=== PATIENT | female | born 1985 | race Caucasian/White ===

== ENCOUNTER 2018-05-17 18:07 | Emergency (ER) | payer MEDICAID, SELFPAY ==
[2018-05-17 18:08] VITALS: BP 128/77; PULSE 119; RESP 16; TEMP 36.4; O2SAT 98; BMI 31.1
--- NOTE | 2018-05-17 18:40 | ED.VISSUMM ---
- ER Visit Summary Date of Service: 05/17/18 Chief Complaint: Right knee cellulitis History of Present Illness: The patient is a 32 F presenting with redness to her right knee. This started yesterday. It started with a small area of redness. She went to urgent care yesterday and was started on Bactrim. She states a line was drawn around the redness. Today the redness spread beyond the line. She has had fevers at home. She denies chest pain or shortness of breath. Denies other complaints. Physical Examination: Vitals are stable. Patient is afebrile. Alert no acute distress. HEENT exam is unremarkable. Neck is supple. Lungs are clear and equal bilaterally. Heart is regular rate and rhythm. Abdomen is soft nontender nondistended. Extremities right lateral knee erythema, no fluctuance. Able to range knee without difficulty Skin is warm and dry. No focal neurologic deficit. Remainder of exam is unremarkable. Emergency Department Course and Treatment: CBC is normal. ESR is normal. Chemistries unremarkable, hCG negative. CRP 30.7. Right knee x-ray shows no acute bony process, focal lateral subcutaneous edema. On repeat exam, the erythema has not spread. She has full range of motion without difficulty. She is given a dose of Ancef IV. She declines admission. She is given a prescription for Keflex and advised to continue Bactrim. She will watch this closely and return to the ED if she has any worsening complaints. Line is drawn around the erythema. She will follow-up with her primary care physician. Disposition: Discharged home Impression: Right lower extremity cellulitis This note was generated with [employer] dictation software. It may contain incorrect words, spelling, and punctuation that were not noted in review of the chart prior to signing ED Disposition - Plan for ED Patient: Chief Complaint: Abscess Instructions: ED Infec Skin Cellulitis Prescriptions: Cephalexin [Keflex] 500 mg PO Q6 #40 capsule Referrals: Evert Love MD [Primary Care Provider] -
[2018-05-17 18:51] LABS: Absolute Lymphocyte Count 1.73 X10^3/ul (0.83-4.51); Absolute Neutrophil Count 4.7 X10^3/uL (2.0-7.7); Basophil# 0.02 X10^3/uL; Basophil% 0.3 % (0-1); Eosinophil# 0.11 X10^3/uL; Eosinophils% 1.5 % (0-5); Hematocrit 42.7 % (37-47); Hemoglobin 14.4 g/dl (12.0-15.0); Lymphocyte # 1.73 X10^3/ul (4.0); Lymphocyte % 24.2 % (19-41); Mean Corp Hgb Conc 33.7 g/gl (32-36); Mean Corpuscular Hgb 29.4 pg (27.0-32.0); Mean Corpuscular Volume 87.3 fL (81-99); Mean Platelet Vol. 9.4 fl (6.2-12.0); Monocyte# 0.55 X10^3/uL; Monocyte% 7.7 % (0-10); Neutrophil # 4.72 X10^3/uL (2.7-7.7); Neutrophil % 66.2 % (47-70); Platelet Count 255 K/mm3 (150-450); RBC Distribution Width SD 40.8 fl (35.1-43.9); Red Blood Count 4.89 M/mm3 (4.2-5.4); White Blood Count 7.1 K/mm3 (4.4-11.0)
[2018-05-17 18:53] LABS: POSITIVE COUNT NO; POSITIVE DIFFERENTIAL NO; POSITIVE MORPHOLOGY NO
[2018-05-17 19:11] LABS: Erythrocyte Sedimentation Rate 16 mm/hr (0-20)
[2018-05-17 19:20] LABS: Anion Gap 10 (5-15); BUN 10 mg/dL (7-18); BUN/Creat Ratio 12.9 RATIO (10-20); Calcium,Total 8.9 mg/dL (8.5-10.1); Chloride 106 mmol/L (98-107); Creatinine, Serum 0.78 mg/dL (0.55-1.02); EST Glomerular Filtration Rate 92 mL/min (>60); Est Glom Filt Rate - Afr Amer 111 mL/min (>60); Estimated Creatinine Clearance 83.41 ml/min; Glucose 89 mg/dL (74-106); Potassium 3.6 mmol/L (3.5-5.1); Sodium Level 140 mmol/L (136-145)
[2018-05-17 19:30] LABS: Pregnancy, Serum, hCG Quali. NEGATIVE Negative (0-9 Nonpreg)
--- NOTE | 2018-05-17 20:51 | ED.DEP ---
ED Disposition - Plan for ED Patient: Chief Complaint: Abscess Instructions: ED Infec Skin Cellulitis Prescriptions: Cephalexin [Keflex] 500 mg PO Q6 #40 capsule Referrals: Evert Love MD [Primary Care Provider] -
[2018-05-17] MEDS: Cefazolin 1 GM/50 ML BAG IV (21:06)
[2018-05-17] MEDS: Ketorolac 30 MG/ML Syringe IV (21:06)
[2018-05-17 21:07] VITALS: BP 103/73; PULSE 97; RESP 18; O2SAT 97
[2018-05-17 22:15] VITALS: BP 101/70; PULSE 98; RESP 18; O2SAT 96
== END 2018-05-17 22:17 | disposition home or self-care (01) ==
LOC: ED 19:01
PROVIDERS: Emergency Provider Emergency Medicine; Family Provider Family Medicine; PCP Family Medicine
DX: L03.115 Cellulitis of right lower limb (principal); Z86.711 Personal history of pulmonary embolism
CPT/HCPCS: 73560; 80048; 84703; 85025; 85652; 86140; 96365; 96375; 99283; J7050; A4216

== ENCOUNTER 2018-05-25 22:11 | Emergency (ER) | payer MEDICAID, SELFPAY ==
[2018-05-25 22:11] VITALS: BP 121/70; PULSE 90; RESP 18; TEMP 36.6; O2SAT 97; BMI 35.2
--- NOTE | 2018-05-25 23:35 | ED.VISSUMM ---
- ER Visit Summary Date of Service: 05/25/18 Chief Complaint: [] History of Present Illness: The patient is a 32 F [left thigh lesion presents the emergency department complaint of a lesion on her left distal thigh that she noticed this evening. Patient states initially started with some discomfort to the distal thigh and some tingling followed by a small discoloration which has continued to enlarge this evening. Patient denies any trauma. Patient is concerned because she has had history of PEs. She is not currently on blood thinners. She denies any chest pain or shortness of breath.] Physical Examination: [HEENT-PERRLA, EOMI. Cranial nerves II through XII grossly intact. TMs clear. Mucous membranes moist. No adenopathy. Cardiovascular-regular rate and rhythm without murmur or ectopy Lungs-clear to auscultation, chest wall stable without crepitus or subcu emphysema Abdomen-normoactive bowel sounds, soft, nontender, no rebound or rigidity, no peritoneal signs. Extremities-intact ?4, normal range of motion, normal pulses. Left thigh-just proximal to the left knee on the anterior thigh there is a small area of ecchymosis and bruising which is consistent with a small hematoma. Area is tender to palpation. No significant edema of the extremity. No tenderness over the calf. Negative Homans sign. Test Results: [CBC with differential obtained was normal. Venous duplex of the left lower extremity was negative for DVT.] Emergency Department Course and Treatment: Sanjeev wrap was given for compression. I suspect patient likely has a spontaneous hematoma from a small vessel rupture. [] Treatment Plan: Sanjeev wrap [] Disposition: [Discharged home in stable condition] Impression: [Hematoma left thigh-spontaneous] This note was generated with [employer] dictation software. It may contain incorrect words, spelling, and punctuation that were not noted in review of the chart prior to signing ED Disposition - Plan for ED Patient: Chief Complaint: Wound Referrals: Evert Love MD [Primary Care Provider] -
--- NOTE | 2018-05-25 23:37 | ED.DEP ---
ED Disposition - Plan for ED Patient: Chief Complaint: Wound Instructions: ED Hematoma Referrals: Evert Love MD [Primary Care Provider] - 3-5 Days
[2018-05-25 23:41] LABS: Absolute Lymphocyte Count 2.64 X10^3/ul (0.83-4.51); Absolute Neutrophil Count 2.6 X10^3/uL (2.0-7.7); Basophil# 0.02 X10^3/uL; Basophil% 0.3 % (0-1); Eosinophil# 0.17 X10^3/uL; Eosinophils% 2.9 % (0-5); Hematocrit 43.8 % (37-47); Hemoglobin 14.5 g/dl (12.0-15.0); Lymphocyte # 2.64 X10^3/ul (4.0); Lymphocyte % 45.4 % (19-41); Mean Corp Hgb Conc 33.1 g/gl (32-36); Mean Corpuscular Hgb 29.2 pg (27.0-32.0); Mean Corpuscular Volume 88.3 fL (81-99); Mean Platelet Vol. 9.6 fl (6.2-12.0); Monocyte# 0.36 X10^3/uL; Monocyte% 6.2 % (0-10); Neutrophil # 2.62 X10^3/uL (2.7-7.7); Platelet Count 302 K/mm3 (150-450); RBC Distribution Width CV 12.9 % (11.6-14.6); RBC Distribution Width SD 41.3 fl (35.1-43.9); Red Blood Count 4.96 M/mm3 (4.2-5.4); White Blood Count 5.8 K/mm3 (4.4-11.0)
[2018-05-25 23:43] LABS: POSITIVE COUNT NO; POSITIVE DIFFERENTIAL NO; POSITIVE MORPHOLOGY NO
[2018-05-25 23:55] VITALS: RESP 18; O2SAT 97
== END 2018-05-25 23:57 | disposition home or self-care (01) ==
PROVIDERS: Emergency Provider Emergency Medicine; Family Provider Family Medicine; PCP Family Medicine
DX: S70.12XA Contusion of left thigh, initial encounter (principal); X58.XXXA Exposure to other specified factors, initial encounter; Y93.9 Activity, unspecified; Y92.9 Unspecified place or not applicable; Y99.9 Unspecified external cause status; Z86.711 Personal history of pulmonary embolism
CPT/HCPCS: 85025; 93971; 99283; A4216

== ENCOUNTER 2019-05-21 17:07 | Emergency (ER) | payer MEDICAID, SELFPAY ==
[2019-05-21 17:10] VITALS: BP 126/73; PULSE 85; RESP 18; TEMP 36.3; O2SAT 96; BMI 38.3
--- NOTE | 2019-05-21 17:18 | ED.VIS.GEN ---
History of Present Illness Chief Complaint: Abd Pain Informant: Patient Onset: Yesterday Context: Sudden Onset Timing: Continuous Quality: Pain Location: Supraumbilical Current Severity: Moderate Maximum Severity: Severe Worsened by: Movement Relieved by: Nothing Associated Symptoms: Nothing other than pain Narrative: Patient is a 33-year-old woman who presents with supraumbilical pain secondary to a reducible hernia. She was seen at [facility]. The [facility] care physician was unable to reduce the hernia. States she has had pain since yesterday. She denies fever, chills or night sweats. She denies nausea, vomiting or diarrhea. She denies constipation. She has no other complaints. Prior similar symptoms: Yes Recent Illness/Hospitalization: No - Past Medical History (1) No significant past medical history Status: Acute Past Medical History - Allergies and Home Meds Allergies/Adverse Reactions: Allergies No Known Allergies Allergy (Verified 05/21/19 17:12) Primary Care Physician: Evert Love MD [Primary Care Provider] - Past Medical History: - - Patient vocal hernia Lives: With Family Smoking Status: Never smoker Alcohol: Rare Drugs: None Review of Systems General: Denies: Chills, Fever, Malaise Eyes: Denies: Visual changes - bilaterally, Blurred Vision - bilaterally ENT: Denies: Bilateral ear pain, Rhinorrhea, Sore throat Cardiovascular: Denies: Chest pain, Palpitations, Heart racing Respiratory: Denies: Dyspnea, Cough, Dyspnea on exertion Gastrointestinal: Reports: Abdominal pain. Denies: Nausea, Vomiting, Diarrhea, Melena, Hematochezia Genitourinary: Denies: Dysuria, Hematuria, Frequency Hematologic: Denies: Easy bruising, Easy bleeding Physical Exam Vital Signs/Narrative: Vital Signs Temp Pulse Resp BP Pulse Ox 05/21/19 17:10 97.3 F L 85 18 126/73 H 96 Inital Vital Signs reviewed: Yes General: Well nourished, Well developed, Acute Distress Head: Normocephalic, Atraumatic Eyes: Perrl, EOMI. Negative for: Pale conjunctiva, Scleral icterus ENT: Negative for: No rhinorrhea, TM's clear Cardiovascular: Regular rate, Regular rhythm, No murmurs, Normal S1, Normal S2 Respiratory: No distress, CTA bilaterally, Chest nontender Abdomen: Soft, Nondistended, Normal bowel sounds, Umbilical hernia, Hernia reducible, - - Is a scar secondary to umbilical piercing. There is no evidence of infection.. Negative for: Nontender, No masses Rectal: Deferred Skin: Normal color, No rash, Jaundice. Negative for: Cyanosis, Diaphoresis, No Trauma Neurological: Alert, Oriented x3, Cranial nerves II-XII grossly intact, Normal Strength, Normal Sensation Psychological: Normal affect, Normal Mood Diagnostic/Tx/Re-eval - Medical Decision Making She has an umbilical hernia. The buccal hernia was easily reduced with minimal effort. 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 Dr. Sterling was paged to expedite seeing patient. ED Disposition - Plan for ED Patient: Disposition: Home or Assisted Living Diagnosis: Reducible umbilical hernia Instructions: HERNIA (Inguinal, Ventral, Umbilical) Referrals: Evert Love MD [Primary Care Provider] - Vicki Sterling MD [STAFF PHYSICIAN] - 3-5 Days Additional Instructions: No lifting anything heavier than a phone book. Take ibuprofen for pain.
== END 2019-05-21 18:11 | disposition home or self-care (01) ==
LOC: ED 18:02
PROVIDERS: Emergency Provider Emergency Medicine; Family Provider Family Medicine; PCP Family Medicine
DX: K42.9 Umbilical hernia without obstruction or gangrene (principal)
CPT/HCPCS: 99282

== ENCOUNTER 2019-06-08 12:01 | Day surgery (SDC) | payer MEDICAID, SELFPAY ==
[2019-05-28 10:34] VITALS: BMI 38.3
[2019-06-05 13:12] LABS: Hematocrit 45.6 % (37-47); Hemoglobin 14.8 g/dL (12.0-15.0); Mean Corp Hgb Conc 32.5 g/dL (32-36); Mean Corpuscular Hgb 28.4 pg (27.0-32.0); Mean Corpuscular Volume 87.5 fL (81-99); Mean Platelet Vol. 9.6 fl (6.2-12.0); Platelet Count 275 K/mm3 (150-450); RBC Distribution Width CV 12.7 % (11.6-14.6); RBC Distribution Width SD 40.5 fl (35.1-43.9); Red Blood Count 5.21 M/mm3 (4.2-5.4); White Blood Count 7.6 K/mm3 (4.4-11.0)
[2019-06-05 13:20] LABS: International Normalized Ratio 1.2; Prothrombin Time (Protime)PT. 14.8 SECONDS (11.7-14.9)
[2019-06-05 13:21] LABS: Partial Thromboplast Time 28.1 Seconds (24.1-36.2)
[2019-06-05 13:37] LABS: AST(SGOT) 20 U/L (15-37); Alanine Aminotransfer ALT/SGPT 33 U/L (13-56); Albumin, Serum 3.5 g/dL (3.2-5.0); Alkaline Phosphatase 66 U/L (45-117); Bilirubin, Direct 0.16 mg/dL (0.00-0.30); Globulin 4.3 g/dL (2.2-4.2); Protein, Total 7.8 g/dL (6.4-8.2)
[2019-06-08] VITALS (13 sets, daily range): BP systolic 90–118; BP diastolic 53–79; PULSE 57–87; RESP 16–18; TEMP 36.4–36.8; O2SAT 92–100; BMI 37.6
[2019-06-08 12:23] LABS: Internal QC Validated? YES +Cl - CLEAR BKGD; Pregnancy, Urine Negative Negative
--- NOTE | 2019-06-08 12:32 | PCM.HP.BLA ---
History and Physical Date of Admission: 06/08/19 Date of Service: 05/28/19 Intake Vital Signs 05/28/19 Body Mass Index (BMI) 38.3 05/28/19 Height 5 ft 2 in 05/28/19 Weight: 211 lb 05/28/19 Body Mass Index (BMI) 38.5 05/28/19 Blood Pressure 114/83 H 05/28/19 Blood Pressure Location Rt brachial 05/28/19 Respiratory Rate 16 Intake Visit Reasons: Umbilical hernia [facility] ER 05/21 News Correspondent Required: No Is patient in pain?: No Allergies No Known Allergies Allergy (Verified 05/28/19 10:34) Medications NK 05/21/19 [History Confirmed 05/28/19] [facility] Medical History (Updated 05/28/19 @ 10:33 by Maria Isabel Richards) Pulmonary embolism (Acute) Umbilical hernia (Acute) Social History (Updated 05/31/19 @ 13:24 by Vicki Sterling MD) Smoking Status: Never smoker alcohol intake: never HPI HPI HPI: LEA TRIPP, is a 33 F who presents to the office today for HPI HPI Surgical H&P: Yes HPI: LEA TRIPP, is a 33 F who presents to the office today for umbilical hernia. Patient states she has had this for about 4 years since her last . Patient states last week on Tuesday she had increased pain at her umbilicus and above so she went to the ER they were able to reduce the hernia. Patient did have some nausea associated with the pain. But otherwise denies any vomiting. Patient states she has been able to eat p.o. and have bowel function. States her pain is gone currently. Patient does have a history of having a PE in 2010 states that is likely due to control she was only on anticoagulation in 2010. Patient states she saw a research biologist unsure who it was but she left some level that she is unsure of but her grandmother has the same thing. Patient states she was able to come off anticoagulation however during HER-2 pregnancies she was put on anticoagulation and again removed after delivery. ROS General General: Yes weight change and fatigue Gastro Gastrointestinal: Yes abdominal pain, No nausea or vomiting, No diarrhea, No constipation, No blood in stool, No acid reflux, No hemorrhoids, No ulcers, No gallbladder problem, No black,tarry stools Arash Hematologic: Yes blood clots (2010 hx of PE) Exam Const General: cooperative, comfortable, no acute distress Resp Effort & Inspection: normal respiratory effort Cardio Rate: regular rate GI Inspection: non-distended Palpation: soft, no guarding, hernia (incarcated-small amount of tissue, +ttp) umbilical, tender (at hernia) Assessment & Plan Problems 1. Umbilical hernia, incarcerated K42.0 Plan We will try to obtain the records from hematology due to her PE in 2010, patient states she was low at a factor but cannot remember what that was states she has not had any issues since then just been on anticoagulation in 2010 and then for her to most recent pregnancies. Plan to do an umbilical herniorrhaphy with mesh. Reviewed the procedure with the patient including the risks, including but not limited to infection, bleeding, injury to the small bowel, and recurrence. All questions were answered. Also, discussed risk of strangulated bowel. Cautioned the patient that if she has N/V, ABD distention, increased umbilical pain or changes of the skin over the hernia she needs to go to the ER. Addendum: I was able to get the records from hematology [facility]. 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 Patient has not been on any control since then. Vicki Sterling M.D. Pager: [phone] [facility] [address] [place] [address], [address] [place] [address] Office: [phone] Coding Level of Care Code Off vis,new,level 3 Diagnoses Umbilical hernia, incarcerated K42.0 05/31/19 1324 <Electronically signed by Vciki Sterling MD> Date Vicki Sterling MD
[2019-06-08] MEDS: Lactated Ringers 1,000 ML 100 ML IV (12:35)
--- NOTE | 2019-06-08 13:20 | HERN_PTH ---
PATIENT: LEA TRIPP LOC: [facility] U#:[id number] AGE/SX: 34/F ROOM: RE06/08/[address]: Dr. Vicki Sterling MD : 1985 BED: DIS: 06/08/2019 SPEC #: [id number] RECD: 06/08/19 15:16 STATUS: VIKRAM MACK #: [id number] CHRISTOPHER: 06/08/19 13:[address]: Vicki Sterling DEPT: SURGICAL PATHOLOGY RECD BY: Fabián Phillips ENTERED: 06/11/19 12:10 SP TYPE: Hernia OTHR DR: MD Dr. Evert Oliva MD Tissues: HERNIA Procedures: Surgery Specimen Level II HEADER OPERATION: Umbilical hernia repair with mesh PRE-OP DIAGNOSIS: Incarcerated umbilical hernia K42.0 TISSUE SUBMITTED: Hernia sac MICROSCOPIC DIAGNOSIS Hernia sac, herniorrhaphy: Fibrosis and minimal chronic inflammation. AM:megan 06/12/19 MICROSCOPIC DESCRIPTION Slides are reviewed. GROSS DESCRIPTION Received in fixative is one container labeled with the patient's name and designated hernia sac. The specimen consists of two pieces of pink-red soft tissue measuring in aggregate 2.5 x 0.5 x 0.5 cm. Both pieces are bisected. The entire specimen is submitted in one cassette. / SJ:rg 06/11/19 TC:5 CPT: 09296
[2019-06-08] MEDS: Cefazolin 2 GM in 0.9% Normal Saline 100 ML IV (13:26)
--- NOTE | 2019-06-08 14:30 | OP.PCM_ITS ---
Report of Operation Date of Procedure: 06/08/19 Pre-Operative Diagnosis: Incarcerated umbilical hernia Post-Operative Diagnosis: Same Surgery/Procedure Performed:: Incarcerated umbilical hernia repair with mesh Type of Anesthesia:: General/Supplemental Anesthesiologist: Johnny Wilson Special Medications: Ancef 2 g IV x1 Specimen's removed: Hernia sac Estimated Blood Loss (mL): < 10 cc Fluids Replaced: 800 cc Description of Procedure: Patient was brought into the room placed supine on the operating table. Correct patient, procedure, site, positioning, special, was verified prior to procedure. General anesthesia was induced. The abdomen was prepped draped in usual sterile fashion. A curvilinear incision was made below the umbilicus with a 15 blade scalpel. This was deepened with electrocautery. A hemostat was used to go around the stalk of the umbilicus and Metzenbaum scissors was used to carefully divide the hernia sac from the skin of the umbilicus. The fascia around the hernia defect was cleared and the hernia defect measured 1 cm x [address] hernia patch diameter 4.3 cm (lot [id number] ref [id number]) was used. The tails of mesh were sutured to the fascia with 1-0 Nurolon mattress suture. Another 1-0 Nurolon suture was placed to further secure the mesh and close the fascia in a [id number]. The wound was irrigated with saline. Hemostasis was assured. The skin of the umbilicus was secured to the fascia using 3-0 Vicryl sutures interrupted. The incision was closed with 3-0 Vicryl subdermal interrupted sutures and the skin was closed with interrupted 4-0 Monocryl sutures. Steri- Strips and Tegaderm and OpSite were placed over the incision once sterile cotton balls were placed in the umbilicus. Patient was extubated. Patient tolerated procedure well and was taken to the postanesthesia care unit in stable condition. Grafts/Implants Used: ventralex ST hernia patch diameter 4.3 cm (lot [id number] ref [id number]) - Complications None
--- NOTE | 2019-06-08 14:35 | PCM.DC.HER ---
Discharge Diet: No Restrictions Discharge Activity: May not drive while taking narcotic pain medications. May shower in (days): 5 - Okay to lower shower tomorrow but keep the dressing clean dry and intact x5 days, or okay to use a Ziploc bag to tape over the dressing and take a regular shower tomorrow. Lifting Restrictions: No lifting or 20 pounds x 3 weeks Call your doctor if your incision/area has: Continuous Slow Oozing, Sudden Increased Bleeding, Increased Pain/ Swelling, Increased Redness, Foul Smelling Discharge, Swelling at the incision site Call your doctor if you observe: Fever of 101 or Higher Remove Dressing in (days):: 5 - Okay to remove dressing after 5 days then continue to put gauze or cotton balls over the umbilicus and a pressure tape dressing over the top change daily for additional 2 more days Allergies/Adverse Reactions: Allergies pneumococcal vaccine Allergy (Verified 06/04/19 09:41) Rash Medications to take at Discharge Oxycodone HCl/Acetaminophen [Percocet 5/325] 1 - 2 tab PO Q6H PRN PRN 4 Days #25 tab 06/08/19 The following prescriptions were given: Oxycodone HCl/Acetaminophen [Percocet 5/325] 1 - 2 tab PO Q6H PRN PRN 4 Days #25 tab PRN Reason: Pain Transmission Status: Received by GAY Younger Orders to be completed after discharge: CBC-Complete Blood Cnt No Diff Time Frame: 06/04/19, Facility: [facility], Location: Laboratory Liver Profile Time Frame: 06/04/19, Facility: [facility], Location: Laboratory Partial Thromboplast Time Time Frame: 06/04/19, Facility: [facility], Location: Laboratory Prothrombin Time w/INR Time Frame: 06/04/19, Facility: [facility], Location: Laboratory Primary Care Physician: Evert Love MD [Primary Care Provider] - Test Results: Test results from this visit will be discussed in further detail at your follow-up appointment, if applicable. Please Follow Up With: Vicki Sterling MD - After 5 PM and on the weekends call [phone] with any concerns When: All the office [phone] for a follow-up appointment in 2 weeks. Proposed Discharge Date: 06/08/19
[2019-06-08] MEDS: Bupivacaine Mpf 0.5% 30 ML VIAL (14:44)
[2019-06-08] MEDS: Acetaminophen 325 MG Tablet PO (16:09)
[2019-06-08] MEDS: oxyCODONE 5 MG Tablet PO (16:09)
== END 2019-06-08 16:48 | disposition home or self-care (01) ==
LOC: SDC 12:01 → AC 12:03
PROVIDERS: Anesthesiology; Family Provider Family Medicine; PCP Family Medicine; Referring Provider Surgery; Visit Provider Surgery
PROC: (CPT 49587; principal; 2019-06-08 13:05)
DX: K42.0 Umbilical hernia with obstruction, without gangrene (principal); Z86.711 Personal history of pulmonary embolism; Z86.718 Personal history of other venous thrombosis and embolism; Z87.891 Personal history of nicotine dependence
CPT/HCPCS: 00830; 49587; 36415; 80076; 81025; 85027; 85610; 85730; 88302; J7120; C1781; J2405

== ENCOUNTER 2019-07-06 14:59 | Emergency (ER) | payer MEDICAID, SELFPAY ==
[2019-06-08 12:24] VITALS: BMI 37.6
[2019-07-06 15:01] VITALS: BP 125/75; PULSE 92; RESP 16; TEMP 36.9; O2SAT 96; BMI 37.7
--- NOTE | 2019-07-06 15:13 | ED.DCSUM_ITS ---
History of Present Illness Chief Complaint: Wound Check Informant: Patient Onset: Today Context: Gradual Onset Timing: Intermittent Current Severity: Severe Narrative: Patient is a 35-year-old female that is approximately 1 month status post laparoscopic umbilical hernia repair performed by Dr. Joaquin, presenting from home with concern for surgical site infection. Patient states she is having much more pain that she describes as burning at her umbilicus today and when she was changing her dressing noticed that she had a decent amount of purulent drainage that came out. She says she is hydrated 3 times a day. She has had some nausea the last few nights but still been able to eat and drink. She denies any fever or chills. She denies any change in bowel habits. States the pain she is having is worse than it has been since her surgery. She did not call her surgeon prior to coming in. She denies any other complaints at this time. Past Medical History - Allergies and Home Meds Allergies/Adverse Reactions: Allergies pneumococcal vaccine Allergy (Verified 07/06/19 15:00) Rash Primary Care Physician: Evert Love MD [Primary Care Provider] - Surgical History: herniorrhaphy Smoking Status: Former smoker Review of Systems All systems negative except as indicated Gastrointestinal: Reports: Abdominal pain Skin: Reports: Rash - Increased redness at surgical site?umbilicus, Abscess - Surgical site at umbilicus Physical Exam Vital Signs/Narrative: Vital Signs Temp Pulse Resp BP Pulse Ox 07/06/19 15:01 98.4 F 92 16 125/75 H 96 Inital Vital Signs reviewed: Yes General: Well nourished, Well developed, No Acute Distress Head: Normocephalic, Atraumatic Eyes: Perrl, EOMI ENT: Moist mucous membranes, No rhinorrhea Neck: Supple, Nontender Cardiovascular: Regular rate, Regular rhythm, No murmurs Respiratory: No distress, CTA bilaterally, Chest nontender Abdomen: Soft, Nondistended, Normal bowel sounds, Tender - Mild, periumbilical. Negative for: Guarding, Rebound tenderness Back: Nontender, Normal Inspection Extremities: Nontender, No edema Skin: - - Erythema at umbilical surgical sites, no fluctuance or drainage appreciated Neurological: Alert, Oriented x3, Cranial nerves II-XII grossly intact, Normal Strength, Normal Sensation Psychological: Normal affect, Normal Mood Diagnostic/Tx/Re-eval Laboratory Results - last 24 hr 07/06/19 07/06/19 07/06/19 15:30 15:30 16:00 WBC 6.4 RBC 5.29 Hgb 15.2 H Hct 47.2 H MCV 89.2 MCH 28.7 MCHC 32.2 RDW Std Deviation 42.4 RDW Coeff of Fadia 13.0 Plt Count 242 MPV 9.7 Immature Gran % (Auto) 0.300 Neut % (Auto) 55.1 Lymph % (Auto) 34.6 Greenlee % (Auto) 6.9 Eos % (Auto) 2.5 Baso % (Auto) 0.6 Absolute Neuts (auto) 3.5 Absolute Lymphs (auto) 2.20 Nucleated RBC % 0 Sodium 140 Potassium 3.6 Chloride 106 Carbon Dioxide 25.0 Anion Gap 9 BUN 10 Creatinine 0.78 Estim Creat Clear Calc 81.89 Est GFR (MDRD) Af Amer 110 Est GFR (MDRD) Non-Af 91 BUN/Creatinine Ratio 12.8 Glucose 108 H Calcium 8.7 Urine Test Negative Diagnostic Data Abdomen/Pelvis CT 07/06/19 15:19 IMPRESSION: Nonspecific minimal low density collection at the umbilicus measuring 8 x 7 x 16 mm, potential abscess. This is deep to the indention of the umbilicus and above the abdominal wall. Generalized skin thickening and what appears to be an ulceration in the skin just to the right of midline. No additional acute internal abdominal or pelvic findings. 1 mm nonobstructing stone in the midpole of left kidney without hydronephrosis or ureteral stones. Involuting follicle of the left ovary and a small amount of free fluid in the cul-de-sac. 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 Electronically Signed: Hanna Lucas MD at 16:53 EDT , Service support , - Medical Decision Making She is evaluated for purulent discharge and pain at her umbilical surgical site. She is 28 days postop. Patient does show me photos of the drainage earlier today which was grossly purulent/bloody. I am not able to express any purulence at this time. Patient does have tenderness at the site. She has a mild amount of overriding erythema. Discussed with her surgeon, Dr. Joaquin, who evaluated the patient in the ER and does recommend getting a CT with IV contrast. She also recommends a dose of vancomycin as patient has a history of MRSA. CT shows a superficial abscess with no deeper involvement. Lab work including CBC, BMP and are all unremarkable. Patient be discharged on a course of doxycycline. She is instructed to follow-up with her surgeon. Packing is placed in the wound by her surgeon and patient is given for the packing and instructions for wound care. Patient is counseled on signs and symptoms requiring return to the emergency room. Patient verbalizes agreement and understand this plan. Patient discharged home in stable and improved condition. ED Disposition - Plan for ED Patient: Disposition: Home or Assisted Living Diagnosis: Abscess after procedure Instructions: ABSCESS, Incision and Drainage Prescriptions: Doxycycline 100 mg PO BID #14 cap Prescription Printed Referrals: Evert Love MD [Primary Care Provider] - Vicki Sterling MD [STAFF PHYSICIAN] - Additional Instructions: Follow-up with Dr. Joaquin as instructed. Replace packing daily as instructed. Take the entire course of antibiotics. Return to emergency room if you develop any worsening symptoms or concerns.
--- NOTE | 2019-07-06 15:19 | CT_ITS ---
STUDY: CT ABDOMEN AND PELVIS WITH CONTRAST REASON FOR EXAM: Female, 34 years old. Abdominal pain. Possible infection of umbilical hernia repair on 06/08/2019. RADIATION DOSAGE (If Supplied By Facility): CTDIvol = ( 15.84 ) mGy, DLP = ( 1076.27 ) mGycm TECHNIQUE: Transaxial images were obtained from the dome of the diaphragm to the symphysis pubis without oral contrast. IV 100mL Isovue-300 100 was administered. Sagittal and coronal images were reconstructed. Individualized dose optimization techniques were used for this CT. COMPARISON: None. FINDINGS: Minimal posterior bibasilar atelectatic changes. The visualized portions of the heart are within normal limits. Normal liver. Normal gallbladder and extrahepatic biliary system. Normal spleen. Normal pancreas. Normal bilateral adrenal glands. Normal right kidney. 1 mm nonobstructing calcification in the midpole of the left kidney without hydronephrosis or ureteral stones. Nondistended food filled stomach. Normal small intestine. Normal stool-filled colon. The appendix is visualized and appears normal. Normal abdominal aorta. Normal inferior vena cava. Retroaortic left renal vein. Normal urinary bladder. Involuting follicle of the left ovary. Small amount of free fluid in the posterior cul-de-sac. Otherwise negative for pelvic mass. There is a minimal hypodense collection at the umbilicus which measures 8 x 7 x 16 mm which is superficial to the muscular layer. There is generalized skin thickening and what appears to be an ulceration just to the right of midline. 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/Abdomen/Pelvis W IV Cont ONLY IMPRESSION: Nonspecific minimal low density collection at the umbilicus measuring 8 x 7 x 16 mm, potential abscess. This is deep to the indention of the umbilicus and above the abdominal wall. Generalized skin thickening and what appears to be an ulceration in the skin just to the right of midline. No additional acute internal abdominal or pelvic findings. 1 mm nonobstructing stone in the midpole of left kidney without hydronephrosis or ureteral stones. Involuting follicle of the left ovary and a small amount of free fluid in the cul-de-sac. 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 Electronically Signed: Hanna Lucas MD at 16:53 EDT , Service support ,
[2019-07-06 15:49] LABS: Absolute Neutrophil Count 3.5 X10^3/uL (2.0-7.7); Basophil# 0.04 X10^3/uL; Basophil% 0.6 % (0-1); Eosinophil# 0.16 X10^3/uL; Eosinophils% 2.5 % (0-5); Hematocrit 47.2 % (37-47); Hemoglobin 15.2 g/dL (12.0-15.0); Lymphocyte % 34.6 % (19-41); Mean Corp Hgb Conc 32.2 g/dL (32-36); Mean Corpuscular Hgb 28.7 pg (27.0-32.0); Mean Corpuscular Volume 89.2 fL (81-99); Mean Platelet Vol. 9.7 fl (6.2-12.0); Monocyte# 0.44 X10^3/uL; Monocyte% 6.9 % (0-10); NRBC Flagged by Analyzer 0 % (0-5); Neutrophil # 3.49 X10^3/uL (2.7-7.7); Neutrophil % 55.1 % (47-70); Platelet Count 242 K/mm3 (150-450); RBC Distribution Width SD 42.4 fl (35.1-43.9); Red Blood Count 5.29 M/mm3 (4.2-5.4); White Blood Count 6.4 K/mm3 (4.4-11.0)
[2019-07-06] MEDS: 0.9% Normal Saline 1,000 ML 999 ML IV (15:53)
--- NOTE | 2019-07-06 15:53 | PCM.PN.BLA ---
Progress Note Patient presents to the ER due to purulent drainage from umbilical incision status post umbilical hernia repair with mesh, tenderness. Patient states that yesterday he had was burning a little bit today the pain was worse with burning and she also had purulent drainage from the middle parts in the right lateral part of the incision. Abdomen soft, nondistended, tender near the umbilicus, incision surrounding redness about half a centimeter and a small opening at the lateral incision, left side incision well-healed. Labs are currently pending, patient will get IV Vanco as patient has a history of MRSA-- we will plan to do a small I&D to drain any fluid collection, did discuss with patient possibility of needing to have the mesh removed which would leave patient with permanent sutures and also higher risk of recurrence of her hernia. Patient was agreeable with the I&D. Addendum: Patient tolerated I&D well right lateral side of the incision. It was opened up after prepping with Betadine, question if this initially started also has a suture granuloma as patient states that she did have a small suture poking through the lateral side prior to this becoming infected., No obvious purulent fluid was able to be expressed, cultures were taken for Gram stain and anaerobic/aerobic--infection appears superficial. Wound was irrigated with saline and packed with quarter inch iodoform. Gauze was placed over the top. Patient tolerated procedure well. The patient change her packing daily and have her come to the office Tuesday for follow-up, if CT abdomen pelvis is okay with no deeper fluid collections.--Addendum: CT abdomen pelvis not show any deeper collection per my read.
[2019-07-06] MEDS: Morphine 4 MG/ML Syringe IV (15:54)
[2019-07-06 15:59] LABS: Anion Gap 9 (5-15); BUN 10 mg/dL (7-18); BUN/Creat Ratio 12.8 RATIO (10-20); Calcium,Total 8.7 mg/dL (8.5-10.1); Chloride 106 mmol/L (98-107); Creatinine, Serum 0.78 mg/dL (0.55-1.02); EST Glomerular Filtration Rate 91 mL/min (>60); Est Glom Filt Rate - Afr Amer 110 mL/min (>60); Estimated Creatinine Clearance 81.89 ml/min; Glucose 108 mg/dL (74-106); Potassium 3.6 mmol/L (3.5-5.1); Sodium Level 140 mmol/L (136-145)
[2019-07-06 16:23] LABS: Internal QC Validated? YES +Cl - CLEAR BKGD; Pregnancy, Urine Negative Negative
[2019-07-06 19:00] VITALS: BP 105/58; PULSE 92; RESP 16; TEMP 36.8; O2SAT 100
== END 2019-07-06 19:35 | disposition home or self-care (01) ==
PROVIDERS: Emergency Provider Emergency Medicine; Family Provider Family Medicine; PCP Family Medicine
DX: T81.41XA Infection following a procedure, superficial incisional surgical site, initial encounter (principal); L02.216 Cutaneous abscess of umbilicus; Z86.14 Personal history of Methicillin resistant Staphylococcus aureus infection
CPT/HCPCS: 10060; 74177; 80048; 81025; 85025; 87070; 87077; 87186; 87205; 96365; 96366; 96375; 99283; J7040; Q9967